=== PATIENT | female | born 1990 | race African-American/Black ===

== ENCOUNTER 2017-02-17 23:45 | Emergency (ER) | payer BC | END 2017-02-18 00:20 | disposition home or self-care (01) | LOC: ER 23:45 | PROC: 0HQLXZZ Repair Left Lower Leg Skin, External Approach (ICD-10-PCS; principal; 2017-02-17) | DX: S81.812A Laceration without foreign body, left lower leg, initial encounter (principal); W25.XXXA Contact with sharp glass, initial encounter; Y92.22 Religious institution as the place of occurrence of the external cause | CPT/HCPCS: 73590-LT; 99283; A9270-GY ==